=== PATIENT | female | born 1970 | race Caucasian/White ===

== ENCOUNTER 2016-11-02 11:43 | Emergency (ER) | payer OTHER ==
[~2016-11-02] VITALS: Ht 157.5 cm; Wt 62.7 kg
[2016-11-02 11:47] VITALS: TEMP 36.7; Ht 157.5 cm; Wt 62.7 kg
[2016-11-02] MEDS ORDERED: LANS15CA6 PO (11:59)
[2016-11-02] MEDS ORDERED: LSN20 PO (11:59)
[2016-11-02] MEDS ORDERED: IBUP-1451 PO (11:59)
[2016-11-02] MEDS ORDERED: FEXO1TAB58 PO (11:59)
[2016-11-02] MEDS ORDERED: ESTR0.5T3 PO (11:59)
[2016-11-02] MEDS ORDERED: HYDROmorphone INJ 0.5 MG/0.5 ML SYR IV STA ×2 (12:30→15:25)
[2016-11-02] MEDS ORDERED: SODIUM CHLORIDE 0.9% 1000ML 1,000 ML IV STA ×2 (12:30)
[2016-11-02] MEDS ORDERED: ONDANSETRON 8 MG/54 ML D5W IV STA (12:30)
[2016-11-02] MEDS ORDERED: OPTIRAY 320 IV PRN (12:45)
[2016-11-02 13:19] LABS: BASO % 0.2 %; BASO ABS # 0.02 K/uL (0-0.2); COMPLETE YES; EOS % 1.5 %; HEMATOCRIT 39.2 % (37-47); IG% 0.3 %; LYMPH % 26.1 %; LYMPH ABS # 2.29 K/uL (1.2-3.4); MEAN CELL VOLUME 87.9 fL (80-100); MEAN CORPUSCULAR HEMOGLOBIN 28.7 pg (25-34); MEAN CORPUSCULAR HGB CONC 32.7 g/dl (32-36); MEAN PLATELET VOLUME 9.7 fL (7.4-10.4); MONO % 5.1 %; NEUT % 66.8 %; PLATELET COUNT 318 K/uL (130-400); RED BLOOD COUNT 4.46 M/uL (4.2-5.4); WHITE BLOOD COUNT 8.78 K/uL (4.8-10.8)
[2016-11-02 13:31] LABS: ALT/SGPT 19 U/L (12-78); AST/SGOT 17 U/L (15-37); BLOOD UREA NITROGEN 15 mg/dl (7-18); BUN/CREATININE RATIO 19.6 (10-20); CALCIUM 9.2 mg/dl (8.5-10.1); CARBON DIOXIDE 28 mmol/L (21-32); CHLORIDE 106 mmol/L (98-107); CREATININE 0.78 mg/dl (0.60-1.20); GLUCOSE 90 mg/dl (70-99); POTASSIUM 4.4 mmol/L (3.5-5.1); SODIUM 142 mmol/L (136-145)
[2016-11-02 13:35] LABS: ALKALINE PHOSPHATASE 77 U/L (45-117)
[2016-11-02 14:01] LABS: URINE APPEARANCE CLEAR (CLEAR); URINE BILIRUBIN NEG (NEG); URINE COLOR YELLOW; URINE NITRITE NEG (NEG); URINE SPECIFIC GRAVITY 1.012 (1.000-1.030); UROBILINOGEN NEG (NEG); ZZUR CULT IF INDIC CLEAN CATCH NO
[2016-11-02 14:09] LABS: MANUAL MICROSCOPIC REQUIRED? NO; REVIEW REQ? NO
--- NOTE | 2016-11-02 14:32 | DIAGNOSTIC IMAGING REPORT ---
CT OF THE ABDOMEN AND PELVIS WITH CONTRAST CLINICAL HISTORY: Right lower quadrant abdominal pain, nausea and vomiting. Prior hernia. COMPARISON STUDY: None. TECHNIQUE: Following IV administration of 100 mL of Optiray-320, axial images of the abdomen and pelvis were obtained from the lung bases to the proximal femurs. Images were reviewed in the axial, sagittal, and coronal planes. IV contrast was administered without complication. CT DOSE: 667.89 mGy.cm FINDINGS: Slight dilatation of the biliary tree is likely due to prior cholecystectomy. There is no pancreatic ductal dilatation or peripancreatic infiltration. The spleen, adrenal glands and left kidney are normal. There is a 1.1 cm cyst within the midpole of the right kidney. There is no hydronephrosis or hilar ureter. The caliber and wall thickness of small and large bowel are normal. The appendix is normal. There is no ascites. There are scattered colonic diverticula without evidence for acute diverticulitis. There is no lymphadenopathy. There is mild atherosclerotic plaque of the abdominal aorta and branch vessels. There is no aneurysmal dilatation. Mild mesenteric infiltration with small associated lymph nodes is of doubtful significance. No suspicious osseous lesions are identified. IMPRESSION: 1. No acute process within the abdomen or pelvis. 2. Sigmoid diverticulosis without evidence for acute diverticulitis. 3. 1.1 cm right renal cyst. Electronically signed by: Shelton Sun M.D. 11/02/2016 2:30 PM Dictated Date/Time: 11/02/2016 2:22 PM
--- NOTE | 2016-11-02 17:43 | DIAGNOSTIC IMAGING REPORT ---
ULTRASOUND RIGHT VENOUS DOPP LOWER EXT UNILAT CLINICAL HISTORY: Right leg pain COMPARISON STUDY: No previous studies for comparison. FINDINGS: Real-time and color flow Doppler imaging were performed. Flow was seen within the femoral, popliteal and calf veins with no intraluminal thrombus demonstrated. The saphenous vein is patent. IMPRESSION: No evidence of right lower extremity DVT. Electronically signed by: Ihsan Nicholas M.D. 11/02/2016 5:41 PM Dictated Date/Time: 11/02/2016 5:41 PM
--- NOTE | 2016-11-02 17:56 | DIAGNOSTIC IMAGING REPORT ---
ARTERIAL DOPPLER ULTRASOUND OF THE RIGHT LOWER EXTREMITY CLINICAL HISTORY: Right leg pain COMPARISON STUDY: No previous studies for comparison. FINDINGS: Left arm brachial arm systolic pressure was 120 mmHg. The right leg posterior tibial systolic pressure was 157 mmHg. The left leg posterior tibial systolic pressure was 159 cm/s. The right leg cells. Systolic pressure was 1 47 mmHg. The left leg dorsalis pedis systolic pressure was 140 mmHg. This yields normal bilateral ankle arm indices of 1.2. There is triphasic flow within the common femoral artery. There is biphasic flow within the superficial femoral artery. There is biphasic flow within the popliteal artery peroneal artery anterior tibial artery and dorsalis pedis arteries. No high velocity jets were visualized. IMPRESSION: No evidence of right lower extremity arterial stenosis. Electronically signed by: Ihsan Nicholas M.D. 11/02/2016 5:55 PM Dictated Date/Time: 11/02/2016 5:53 PM
[2016-11-02] MEDS ORDERED: NORCO 5/325MG HOME PACK PO ONE (18:45)
[2016-11-02] MEDS ORDERED: HYDR-5688 PO (19:01)
[2016-11-02 19:09] VITALS: BP 153/88; PULSE 62; O2SAT 100
--- NOTE | 2016-11-02 21:55 | EMERGENCY ROOM VISIT NOTE ---
History Report prepared by Jacob: Elvin Richards Under the Supervision of: Dr. Garo George M.D. First contact with patient: 12:21 Chief Complaint: OTHER COMPLAINT Stated Complaint: 2 HERNIAS History of Present Illness The patient is a 46 year old female who presents to the Emergency Room with complaints of worsening right lower quadrant abdominal pain starting about 11 days ago. The patient was twisting when she had an onset of her pain. She was diagnosed with femoral hernia over the right lower quadrant and right inguinal hernia. She has been taking 800 mg Ibuprofen without relief. She is scheduled to have surgery by Dr. Torres next week. She has pain relief with lying down flat. The patient started having nausea this morning. She also reports difficulty with having a bowel movement and urination. She is unable to put pressure due to the pain. The patient's last meal was 8 am this morning. Pt denies LOC, headache, fevers, chills, diaphoresis, visual changes, neck pain , chest pain, breathing difficulties, vomiting, abdominal pain, back pain, melena, hematochezia, numbness, weakness, lymphadenopathy, rash, or other complaints. Source of History: patient Onset: about 11 days ago Position: abdomen (RLQ) Timing: worsening Modifying Factors (Relieving): ibuprofen (without relief), other (lying down flat) Associated Symptoms: + nausea Review of Systems See HPI for pertinent positives and negatives. A total of ten systems were reviewed and were otherwise negative. Past Medical & Surgical Medical Problems: (1) Hypertension Surgical Problems: (1) S/P cholecystectomy (2) S/P hysterectomy Family History Patient reports no known family medical history. Social History Smoking Status: Never Smoker Marital Status: Occupation Status: employed Current/Historical Medications Scheduled Estradiol (Estradiol), 1 MG PO DAILY Fexofenadine-Pseudoephedrine (Marisa-D 24 Hour Allergy), 180 MG PO DAILY Lansoprazole (Prevacid), 15 MG PO DAILY Lisinopril (Lisinopril), 20 MG PO DAILY Scheduled PRN Hydrocodone/Acetaminophen 5MG/325MG ([place] 5MG/325MG), 1-2 TABS PO Q6H PRN for Pain Ibuprofen Tab (Motrin), 800 MG PO Q8H PRN for Pain Allergies Coded Allergies: Promethazine (Verified Allergy, Severe, THROAT CLOSES, 11/02/16) Sulfa Antibiotics (Verified Allergy, Severe, HIVES, THROAT CLOSES, 11/02/16) Aspirin (Verified Adverse Reaction, Severe, VOMITS BLOOD, 11/02/16) Codeine (Verified Adverse Reaction, Severe, VOMITS BLOOD, 11/02/16) Adhesives (Verified Adverse Reaction, Intermediate, TEARS SKIN - Plastic tape, 11/02/16) PLASTIC TAPE Physical Exam Vital Signs Date Time Temp Pulse Resp B/P (MAP) Pulse Ox O2 Delivery O2 Flow Rate FiO2 11/02/16 19:09 62 20 153/88 100 11/02/16 18:20 67 11/02/16 17:44 69 15 111/90 96 11/02/16 15:44 72 20 125/70 97 Room Air 11/02/16 13:18 66 20 130/61 98 Room Air 11/02/16 13:14 67 11/02/16 13:02 68 20 122/70 98 11/02/16 11:47 36.7 79 18 168/87 98 Room Air Physical Exam GENERAL: Awake, alert, uncomfortable-appearing, in no distress HENT: Normocephalic, atraumatic. Oropharynx unremarkable. EYES: Normal conjunctiva. Sclera non-icteric. NECK: Supple. No nuchal rigidity. FROM. No JVD. RESPIRATORY: Clear to auscultation. CARDIAC: Regular rate, normal rhythm. Extremities warm and well perfused. Pulses equal. 2+ DP pulses on the right. ABDOMEN: Soft, non-distended. Tenderness in the right lower quadrant and right inguinal area. No rebound or guarding. No masses. RECTAL: Deferred. MUSCULOSKELETAL: Chest examination reveals no tenderness. No joint edema. LOWER EXTREMITIES: Calves are equal size bilaterally and non-tender. No edema. No discoloration. NEURO: Normal sensorium. No sensory or motor deficits noted. SKIN: No rash or jaundice noted. Medical Decision & Procedures ER Provider Diagnostic Interpretation: CT and US: Radiology results as stated below per my review and radiologist interpretation ULTRASOUND RIGHT VENOUS DOPP LOWER EXT UNILAT CLINICAL HISTORY: Right leg pain COMPARISON STUDY: No previous studies for comparison. FINDINGS: Real-time and color flow Doppler imaging were performed. Flow was seen within the femoral, popliteal and calf veins with no intraluminal thrombus demonstrated. The saphenous vein is patent. IMPRESSION: No evidence of right lower extremity DVT. Electronically signed by: Ihsan Nicholas M.D. 11/02/2016 5:41 PM Dictated Date/Time: 11/02/2016 5:41 PM ARTERIAL DOPPLER ULTRASOUND OF THE RIGHT LOWER EXTREMITY CLINICAL HISTORY: Right leg pain COMPARISON STUDY: No previous studies for comparison. FINDINGS: Left arm brachial arm systolic pressure was 120 mmHg. The right leg posterior tibial systolic pressure was 157 mmHg. The left leg posterior tibial systolic pressure was 159 cm/s. The right leg cells. Systolic pressure was 1 47 mmHg. The left leg dorsalis pedis systolic pressure was 140 mmHg. This yields normal bilateral ankle arm indices of 1.2. There is triphasic flow within the common femoral artery. There is biphasic flow within the superficial femoral artery. There is biphasic flow within the popliteal artery peroneal artery anterior tibial artery and dorsalis pedis arteries. No high velocity jets were visualized. IMPRESSION: No evidence of right lower extremity arterial stenosis. Electronically signed by: Ihsan Nicholas M.D. 11/02/2016 5:55 PM Dictated Date/Time: 11/02/2016 5:[address] OF THE ABDOMEN AND PELVIS WITH CONTRAST CLINICAL HISTORY: Right lower quadrant abdominal pain, nausea and vomiting. Prior hernia. COMPARISON STUDY: None. TECHNIQUE: Following IV administration of 100 mL of Optiray-320, axial images of the abdomen and pelvis were obtained from the lung bases to the proximal femurs. Images were reviewed in the axial, sagittal, and coronal planes. IV contrast was administered without complication. CT DOSE: 667.89 mGy.cm FINDINGS: Slight dilatation of the biliary tree is likely due to prior cholecystectomy. There is no pancreatic ductal dilatation or peripancreatic infiltration. The spleen, adrenal glands and left kidney are normal. There is a 1.1 cm cyst within the midpole of the right kidney. There is no hydronephrosis or hilar ureter. The caliber and wall thickness of small and large bowel are normal. The appendix is normal. There is no ascites. There are scattered colonic diverticula without evidence for acute diverticulitis. There is no lymphadenopathy. There is mild atherosclerotic plaque of the abdominal aorta and branch vessels. There is no aneurysmal dilatation. Mild mesenteric infiltration with small associated lymph nodes is of doubtful significance. No suspicious osseous lesions are identified. IMPRESSION: 1. No acute process within the abdomen or pelvis. 2. Sigmoid diverticulosis without evidence for acute diverticulitis. 3. 1.1 cm right renal cyst. Electronically signed by: Shelton Sun M.D. 11/02/2016 2:30 PM Dictated Date/Time: 11/02/2016 2:22 PM Laboratory Results 11/02/16 12:53 Red Blood Count 4.46, Mean Corpuscular Volume 87.9, Mean Corpuscular Hemoglobin 28.7, Mean Corpuscular Hemoglobin Concent 32.7, Mean Platelet Volume 9.7, Neutrophils (%) (Auto) 66.8, Lymphocytes (%) (Auto) 26.1, Monocytes (%) (Auto) 5.1, Eosinophils (%) (Auto) 1.5, Basophils (%) (Auto) 0.2, Neutrophils # (Auto) 5.86, Lymphocytes # (Auto) 2.29, Monocytes # (Auto) 0.45, Eosinophils # (Auto) 0.13, Basophils # (Auto) 0.02 11/02/16 12:53 Test 11/02/16 12:53 11/02/16 13:37 White Blood Count 8.78 K/uL (4.8-10.8) Red Blood Count 4.46 M/uL (4.2-5.4) Hemoglobin 12.8 g/dL (12.0-16.0) Hematocrit 39.2 % (37-47) Mean Corpuscular Volume 87.9 fL (80-100) Mean Corpuscular Hemoglobin 28.7 pg (25-34) Mean Corpuscular Hemoglobin Concent 32.7 g/dl (32-36) Platelet Count 318 K/uL (130-400) Mean Platelet Volume 9.7 fL (7.4-10.4) Neutrophils (%) (Auto) 66.8 % Lymphocytes (%) (Auto) 26.1 % Monocytes (%) (Auto) 5.1 % Eosinophils (%) (Auto) 1.5 % Basophils (%) (Auto) 0.2 % Neutrophils # (Auto) 5.86 K/uL (1.4-6.5) Lymphocytes # (Auto) 2.29 K/uL (1.2-3.4) Monocytes # (Auto) 0.45 K/uL (0.11-0.59) Eosinophils # (Auto) 0.13 K/uL (0-0.5) Basophils # (Auto) 0.02 K/uL (0-0.2) RDW Standard Deviation 43.1 fL (36.4-46.3) RDW Coefficient of Variation 13.4 % (11.5-14.5) Immature Granulocyte % (Auto) 0.3 % Immature Granulocyte # (Auto) 0.03 K/uL (0.00-0.02) Anion Gap 8.0 mmol/L (3-11) Est Creatinine Clear Calc Drug Dose 78.5 ml/min Estimated GFR () 105.7 Estimated GFR (Non- 91.2 BUN/Creatinine Ratio 19.6 (10-20) Calcium Level 9.2 mg/dl (8.5-10.1) Total Bilirubin 0.3 mg/dl (0.2-1) Direct Bilirubin mg/dl (0-0.2) Aspartate Amino Transf (AST/SGOT) 17 U/L (15-37) Alanine Aminotransferase (ALT/SGPT) 19 U/L (12-78) Alkaline Phosphatase 77 U/L (45-117) Total Protein 7.7 gm/dl (6.4-8.2) Albumin 4.3 gm/dl (3.4-5.0) Lipase 364 U/L (73-393) Chemistry Specimen Hemolysis Urine Color YELLOW Urine Appearance CLEAR (CLEAR) Urine pH 5.0 (4.5-7.5) Urine Specific [place] 1.012 (1.000-1.030) Urine Protein NEG (NEG) Urine Glucose (UA) NEG (NEG) Urine Ketones NEG (NEG) Urine Occult Blood NEG (NEG) Urine Nitrite NEG (NEG) Urine Bilirubin NEG (NEG) Urine Urobilinogen NEG (NEG) Urine Leukocyte Esterase NEG (NEG) Laboratory results reviewed by me Medications Administered Medications (Trade) Dose Ordered Sig/Gab Route Start Time Stop Time Status Last Admin Dose Admin Sodium Chloride 1,000 ml @ 125 mls/hr Q8H STAT IV 11/02/16 12:30 11/02/16 19:25 DC 11/02/16 12:30 125 MLS/HR Sodium Chloride 1,000 ml @ 999 mls/hr Q1H1M STAT IV 11/02/16 12:30 11/02/16 13:30 DC 11/02/16 12:30 999 MLS/HR Ondansetron HCl (Zofran 8mg Iv) 8 mg NOW STAT IV 11/02/16 12:30 11/02/16 12:34 DC 11/02/16 13:04 8 MG Hydromorphone HCl (Dilaudid Inj) 0.5 mg NOW STAT IV 11/02/16 12:30 11/02/16 12:34 DC 11/02/16 13:04 0.5 MG Hydromorphone HCl (Dilaudid Inj) 0.5 mg NOW STAT IV 11/02/16 15:25 11/02/16 15:26 DC 11/02/16 15:25 0.5 MG Acetaminophen/ Hydrocodone Bitart ([place] 5/325mg Home Pack) 1 homepack UD ONCE PO 11/02/16 18:45 11/02/16 18:46 DC 11/02/16 18:45 1 HOMEPACK ED Course 1221: The patient was evaluated in room C07. A complete history and physical exam was performed. Blood pressure screening: Patient was found to have an elevated blood pressure and was referred to their primary doctor for recheck and further treatment. Medication Reconciliation: I attest that I have personally reviewed the patient' s current medication list 1230: Dilaudid Inj 0.5 mg IV, Ondansetron HCl 8 mg IV, Sodium Chloride 1000 ml @ 999 mls/hr IV, Sodium Chloride 1000 ml @ 125 mls/hr IV 1525: Dilaudid Inj 0.5 mg IV. I updated the patient on CT findings and had a long conversation with her. She is insistent that she has a hernia that is bulging out. She continues to complain of pain in the right lower quadrant. I reexamined the patient. She is tender in the right lower quadrant and over the entire inguinal ligament and proximal thigh. I was unable to detect a hernia. I had the patient move around and cough but a hernia was not detected. The patient reports that a 1 cm fat containing inguinal hernia was suggested by ultrasound as ordered by her PCP. Due to the location of her current pain and her PCP's suggestion that women often get femoral hernias, the patient assumed that she had a femoral hernia. She is agreeable to an ultrasound. 1808: I discussed the patient's case with Dr. Schmitz, thoracic surgeon with [facility]. He stated that he would not do anything differently. He recommended pain management. 183: I reevaluated the patient. As per , the patient had a large hematoma from previous surgery. Discussed results and discharge instructions: The patient and her verbalized understanding and agreement. The patient is ready for discharge. 184: [facility] reviewed. The patient's presentation and history were concerning for right lower quadrant abdominal pain and right inguinal pain with history of possible hernia. Etiologies such as incarceration of hernia, strength and motion of hernia, appendicitis, diverticulitis, obstruction, inflammatory bowel disease, renal colic, PUD, biliary pathology, pancreatitis, mesenteric ischemia, aortic pathology, infections, genitourinary, UTI, perforated viscus, as well as others were entertained. The patient was evaluated. She was tender in the right lower quadrant and white inguinal area. There was difficult to palpate any hernia as she was quite tender. She received Zofran, saline, and Dilaudid. She was feeling better with this. The patient had an unremarkable CBC, urinalysis, chemistry, LFTs and lipase. She underwent CT imaging which did not reveal any problems. The patient was adamant that she has hernia causing the problems and that it disappeared because she was lying flat. The patient did require second dose of IV Dilaudid and was feeling better with this. I did reexamine the patient. She had an ultrasound that was performed that was suggestive of a very small 1.3 cm defect that suggested a fat-containing hernia. There was no hernia seen on CT scan in the inguinal area or femoral area. There is no intra-abdominal problems. The patient has had a hysterectomy and ovary removal. The patient had no hernias or significant issues found on examination when I had her stand up and bear down. I had her cough and I could not reproduce any hernia. She was tender over the entire inguinal ligament. This does raise concerns about possible nerve entrapment or neurologic cause. She did note feelings of some cold sensation in her right leg as well. Because of this she underwent ultrasound of the right leg for venous and arterial pathology. These were normal as well. I had a significant discussion with the patient and . I did consult with general surgery, Dr. Dmitriy Schmitz who recommended pain management and close follow-up as an outpatient. Given the negative findings on workup he felt surgical intervention was not necessary. He thought nerve entrapment was a very strong possibility. He did recommend that the patient could be admitted for pain management consultation if she was uncomfortable going home. The patient felt comfortable going home. I did offer hydrocodone to use sparingly as needed. The patient will follow-up or return if she worsens in any way. I gave my usual and customary discussion regarding this issue. Consults Time Called: 1800 Consulting Physician: Dr. Schmitz, thoracic surgeon with [facility] Returned Call: 1808 I discussed the patient's case with Dr. Schmitz, thoracic surgeon with [facility]. He stated that he would not do anything differently. He recommended pain management. Impression Primary Impression: Right groin pain Additional Impression: Right lower quadrant abdominal pain Scribe Attestation The scribe's documentation has been prepared under my direction and personally reviewed by me in its entirety. I confirm that the note above accurately reflects all work, treatment, procedures, and medical decision making performed by me. Departure Information Dispostion Home / Self-Care Prescriptions Hydrocodone/Acetaminophen 5MG/325MG ([place] 5MG/325MG) Tab 1-2 TABS PO Q6H Y for Pain, #15 TAB Prov: Garo George MD 11/02/16 Referrals Albin Remy M.D. (PCP) Forms HOME CARE DOCUMENTATION FORM, IMPORTANT VISIT INFORMATION, WORK / SCHOOL INSTRUCTIONS Patient Instructions My [facility] Additional Instructions DO NOT drive, drink alcohol, operate machinery, or perform dangerous activities today. You were given medications in the ER that can affect your ability to safely function or operate a vehicle. Hydrocodone/acetaminophen 5/325mg: Take 1-2 pills every 6 hours as needed for pain. Avoid additional Acetaminophen/Tylenol, alcohol, operating machinery or dangerous equipment, working on ladders or roofs, DRIVING, or situations where being under the influence may be dangerous. It is recommended to use a stool softener such as Colace, 100mg twice daily while taking this medication to avoid constipation. [id number] treatment: Ibuprofen(Motrin, Advil) may be used for fever or pain. Use 600mg every six hours as needed. Take with food. Avoid using more than 2400mg in a 24 hour period. Do not use 2400mg per day for more than three consecutive days without physician direction. Prolonged inappropriate use can lead to stomach upset or ulcers. (AND/OR) Acetaminophen(Tylenol) may be used for fever or pain. Use 1000mg every six hours as needed. Avoid using more than 4000mg in a 24 hour period. Rest and drink plenty of fluids as tolerated. Slow sips of water or sports drinks are recommended instead of large amounts all at once. Continue current medications. Once your stomach is settled start with a clear liquid diet (jello, soup broth, etc.) and then advance as tolerated. You should avoid full, heavy meals for about 24 hrs from the time your symptoms resolved. Return to the ER immediately for worsening or persistent abdominal pain, back pain, painful bulging in the right lower abdominal/groin area, vomiting, fevers , chest pains, difficulty breathing, black or bloody stools, worsening of your condition, or as needed. Follow up with your primary physician Saturdayfor a recheck of your current condition. Continue appointment with general surgery. Problem Qualifiers
== END 2016-11-02 19:11 | disposition home or self-care (01) ==
LOC: C.EDB 11:45 → C.EDC 19:11
DX: R10.31 Right lower quadrant pain (principal); I10 Essential (primary) hypertension; Z90.710 Acquired absence of both cervix and uterus